=== PATIENT | female | born 1955 | race Caucasian/White ===

== ENCOUNTER 2018-08-29 09:00 | Day surgery (SDC) | payer OTHER ==
--- NOTE | 2018-08-07 06:27 | HP ---
CC: Dr. Martin.* HISTORY AND PHYSICAL: DATE OF PLANNED ADMISSION AND SURGERY: 08/29/18 HISTORY OF PRESENT ILLNESS: Mrs. Diego is a 62-year-old white female who is admitted with suspicious bladder lesions and atypical urine cytology for cystoscopy and excisional biopsies of bladder lesions. Mrs. Diego is a chronic heavy smoker whom I have been following for the last 7 years because of asymptomatic microscopic hematuria. At her visits to my office , she had periodic cystoscopies and urine cytologies and imaging of her kidneys and no abnormalities were noted. 5 months ago, she had a cystoscopy which was negative. Urine cytology showed atypical cells. She then had a CT urogram, which showed normal kidneys and ureters and no abnormal filling defects in the collecting systems or the ureters. The CT scan showed cholelithiasis and osteopenia, but no abnormalities. The patient then had a follow-up cystoscopy last month. The study showed a new finding of flat, irregular, hyperemic lesions in the left base of the bladder that were suspicious for bladder tumors. The patient is admitted for excisional biopsies and fulgurations of the above lesions. PAST MEDICAL HISTORY AND SYSTEM REVIEW: She is hypertensive, maintained on lisinopril 10 mg daily. She is on no other chronic medications. She is a chronic heavy smoker. She denies any allergies to medications. PERFORMANCE MANAGEMENT CONSULTANT History: She is menopausal. She is on no hormone replacement therapy. She had 1 vaginal delivery. She has chronic back pain and known to have osteoporosis. FAMILY HISTORY: Negative. PHYSICAL EXAMINATION GENERAL: Pleasant white female who looks older than her age. VITAL SIGNS: Blood pressure 150/80. LUNGS: Clear. Occasional wheezing. HEART: Regular and rhythmic, no murmurs. ABDOMEN: She has negative abdomen and no CVA tenderness. IMPRESSION: Microscopic hematuria in a chronic smoker with suspicious lesions in the left base of the bladder on cystoscopy and normal kidneys and ureters on CT urogram. PLAN/RECOMMENDATIONS: For cystoscopy and excisional biopsies of the bladder lesions. I discussed the above plans in detail with the patient and her and all their questions were answered. [id number]/[facility] #: [id number] MTDD
[~2018-08-29 09:00] MED LIST: Buffered Lidocaine 0.9% SYRIN* 5 ML/SYR SYRINGE INTRADERM ONE; Lactated Ringers 1000 ML Bag* 1,000 ML IV SCH; Sodium Citrate/Citric Acid* 15 ML UDC PO ONE
[2018-08-29] MEDS ORDERED: cefTRIAXone(*) 1 GM ADVAN/BAG ONE (09:49)
[2018-08-29] MEDS ORDERED: Sodium Citrate/Citric Acid* 15 ML UDC ONE (09:49)
[2018-08-29] MEDS ORDERED: fentaNYL* 50 MCG/ML 2 ML VIAL (100 MCG VIAL) ONE (11:15)
[2018-08-29] MEDS ORDERED: Midazolam* 1 MG/ML 2 ML VIAL (2 MG) ONE (11:15)
[2018-08-29] MEDS ORDERED: Lidocaine 2% PF * 5 ML VIAL ONE (11:15)
[2018-08-29] MEDS ORDERED: Propofol* 10 MG/ML 20 ML BTL ONE (11:15)
[2018-08-29] MEDS ORDERED: Naloxone* 0.4 MG/ML 1 ML VIAL IV PRN (11:56)
[2018-08-29] MEDS ORDERED: Ketorolac INJ* 30 MG/ML 1 ML VIAL IV PRN (11:56)
[2018-08-29] MEDS ORDERED: Ondansetron INJ* 2 MG/ML VIAL IV PRN (11:56)
[2018-08-29] MEDS ORDERED: fentaNYL* 50 MCG/ML 2 ML VIAL (100 MCG VIAL) IV PRN (11:56)
[2018-08-29] MEDS ORDERED: mitoMYcin PWD* 40 MG in Sterile Water for Inj* 40 ML IRRIGATION ONE (13:00)
[2018-08-29 14:19] VITALS: BP 122/81
--- NOTE | 2018-08-29 14:52 | OP ---
CC: Dr. Martin* OPERATIVE REPORT: DATE OF OPERATION: 08/29/18 - [facility] DATE OF : 57 SURGEON: Jorge Luis Wade MD ANESTHESIOLOGIST: Dr. Bert James. ANESTHESIA: General. PRE-OP DIAGNOSIS: Bladder lesions, left base bladder. POST-OP DIAGNOSIS: Pending pathology. OPERATIVE PROCEDURE: 1. Cystoscopy. 2. Excisional biopsies and fulguration of lesions of left base of bladder (3 cm ). INDICATION FOR PROCEDURE: Mrs. Diego is a 62-year-old chronic heavy smoker, whom I have been following for several years because of asymptomatic microscopic hematuria. She recently had atypical urine cytologies. CT urogram was negative. Recent cystoscopy showed flat lesions in the left base of the bladder suspicious for transitional cell carcinoma. The patient is admitted for biopsy & excision of the above lesions. PATHOLOGY: At cystoscopy, there were 3 flat lesions noted in the left base of the bladder, lateral to the left ureteral orifice. 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 The lesions measured a total of 3 cm. The rest of the bladder wall looked normal. There were no papillary lesions and no lesions suspicious of carcinoma in situ. The ureteral orifices looked normal. DESCRIPTION OF PROCEDURE: After successful general anesthesia, the patient was placed in the lithotomy position and was prepped and draped for a cystoscopy. Cystoscopy was performed and the bladder was carefully inspected and the above findings were noted. Using the rigid biopsy forceps, several biopsies were obtained from the lesions. The biopsies were deep enough to include superficial muscle. There was no bladder perforation noted. Using the Bugbee electrode, the sites of the biopsies as well as the surrounding areas and all the irregular looking mucosa in the left base of the bladder were thoroughly fulgurated with the coagulation current. At the end of the procedure, there were no residual lesions seen. There was very good hemostasis and no evidence of bladder perforation. The left ureteral orifice was intact. The cystoscope was then removed and a size 16-Maur[place] Meredith catheter was passed inside the bladder and the balloon inflated with 10 cc of water. The patient tolerated the procedure well and left the operating room in good condition. The plan is to give the patient one dose of intravesical mitomycin C in the recovery room. [id number]/[facility] #: [id number] [facility]
== END 2018-08-29 14:27 | disposition home or self-care (01) ==
LOC: OR 09:00
PROVIDERS: ATTEND Urology
DX: C67.9 Malignant neoplasm of bladder, unspecified (principal); R31.29 Other microscopic hematuria; M81.0 Age-related osteoporosis without current pathological fracture; I10 Essential (primary) hypertension; Z72.0 Tobacco use
CPT/HCPCS: 88305; A9270-GY; J0696; J2250; J2704; J3010; J9280

== ENCOUNTER 2019-07-23 13:20 | Emergency (ER) | payer OTHER ==
[2019-07-23 14:03] VITALS: BP 158/99
[2019-07-23] MEDS ORDERED: Tetan/Diph/Pertus SYR(Tdap)* 0.5 ML SYR(BOOSTRIX) use SYR contains LATEX IM ONE (14:17)
--- NOTE | 2019-07-23 14:17 | UC ---
Laceration HPI - HPI Summary HPI Summary: 63 yo female presents with left index finger laceration. She tells me that she was moving a stove from a truck bed and the stove slid and landed on her left index finger. Sustained a laceration to the area. Bandaged the area and came to . Last tetanus was in 2019. She is right handed. - History Of Current Complaint Chief Complaint: UCLaceration Stated Complaint: FINGER LAC Time Seen by Provider: 07/23/19 14:17 Laceration Location: Finger Mechanism Of Injury: Blunt Trauma Onset/Duration: Sudden Onset Severity: Mild Pain Intensity: 4 Pain Scale Used: 0-10 Numeric - Allergies/Home Medications Allergies/Adverse Reactions: Allergies Allergy/AdvReac Type Severity Reaction Status Date / Time No Known Allergies Allergy Verified 07/23/19 13:56 PMH/Surg Hx/FS Hx/Imm Hx Cardiovascular History: Hypertension - Surgical History Surgical History: Yes Surgery Procedure, Year, and Place: TEETH EXTRACTION. POLYP REMOVED FROM THROAT. RIGHT LUMPECTOMY-BENIGN. bladder tumor removal - Family History Known Family History: Positive: None - Social History Lives: With Family Alcohol Use: None Substance Use Type: None Smoking Status (MU): Heavy Every Day Tobacco Smoker Type: Cigarettes Amount Used/How Often: UP TO 1 PPD X 40+ YEARS Length of Time of Smoking/Using Tobacco: 40 YRS Have You Smoked in the Last Year: Yes Household Exposure Type: Cigarettes Review of Systems All Other Systems Reviewed And Are Negative: No Constitutional: Positive: Negative Skin: Positive: Other - Laceration left index finger Respiratory: Positive: Negative Cardiovascular: Positive: Negative Neurovascular: Positive: Negative Musculoskeletal: Positive: Negative Neurological: Positive: Negative Psychological: Positive: Negative Physical Exam - Summary Physical Exam Summary: GENERAL: NAD. WDWN. No pain distress. SKIN: LEFT INDEX FINGER: Volar aspect overlying PIP with 2.5cm linear laceration partial thickness. Scant active bleeding. No tendon or bony involvement. CHEST: No accessory muscle use. Breathing comfortably and in no distress. CV: Pulses intact. Cap refill <2seconds MSK: FROM at left index finger MCP, PIP, and DIP NEURO: Alert. PSYCH: Age appropriate behavior. Triage Information Reviewed: Yes Vital Signs: Initial Vital Signs Temp 99 F 07/23/19 13:57 Pulse 105 07/23/19 13:57 Resp 18 07/23/19 13:57 BP 158/99 07/23/19 13:57 Pulse Ox 95 07/23/19 13:57 Vital Signs Reviewed: Yes Laceration Repair - Laceration Repair 1 Description: Linear Laceration Size After Repair: Length (cm) - 2.5 Modified For Repair: No Anesthesia Used: 2.0% Lido Irrigation With Pressure Irrigation Device: Yes Closure Material: Sutures - #4 Closure Method: Single Layer Suture Of: Skin Suture Type: Prolene - 5-0 Diagnostics - Radiology Finger XR Radiology Interpretation Completed By: Radiologist Summary of Radiographic Findings: IMPRESSION: Soft tissue swelling at the proximal interphalangeal joint without fracture. Laceration Course/Dx - Course/Dx Course Of Treatment: The procedure was explained to the pt and all questions were answered. A time out was performed, witnessed, and signed. The area was irrigated with 250mL sterile saline. 2mL of 2% lidocaine without epi was administered and good anesthetization was achieved. In the usual sterile fashion, FOUR 5-0 prolene interrupted sutures were placed. Homeostasis achieved. The wound was bandaged with tubegauze. Pt tolerated procedure well. - Diagnosis Provider Diagnosis: Finger laceration Discharge ED - Sign-Out/Discharge Documenting (check all that apply): Patient Departure All imaging exams completed and their final reports reviewed: Yes - Discharge Plan Condition: Stable Disposition: HOME Prescriptions: Cephalexin CAP* [Keflex CAP*] 500 mg PO BID #10 cap Patient Education Materials: Finger Laceration (ED) Referrals: Kip Martin MD [Primary Care Provider] - Additional Instructions: If you develop a fever, shortness of breath, chest pain, new or worsening symptoms - please call your PCP or go to the ED immediately. Your blood pressure was high at todays visit. Please see your primary provider within 4 weeks for recheck and re-evaluation. 1) Please keep the area bandage, clean, dry, and intact for the next 24- 48hours. Then change the bandage daily until sutures are removed. 2) If you develop a fever, colored or thick discharge, increased pain or swelling - please call your PCP or return for a wound check. 3) Please return in 10-12 days to have your FOUR sutures removed. - Billing Disposition and Condition Condition: STABLE Disposition: Home
[2019-07-23] MEDS ORDERED: Lidocaine 2% PF * 5 ML VIAL INJ ONE (14:35)
== END 2019-07-23 15:12 | disposition home or self-care (01) ==
LOC: UCEAST 13:20
DX: S61.211A Laceration without foreign body of left index finger without damage to nail, initial encounter (principal); M79.89 Other specified soft tissue disorders; I10 Essential (primary) hypertension; F17.210 Nicotine dependence, cigarettes, uncomplicated; W23.0XXA Caught, crushed, jammed, or pinched between moving objects, initial encounter; Y92.9 Unspecified place or not applicable
CPT/HCPCS: 12001; 73140; 90715; 99212; G0463